=== PATIENT | male | born 1980 | race African-American/Black ===

== ENCOUNTER 2019-12-27 11:19 | Emergency (ER) | payer SELFPAY ==
[~2019-12-27] VITALS: Ht 182.9 cm; Wt 114.0 kg
[2019-12-27] MEDS ORDERED: HYDROCODONE/ACETAMINOPHEN 5/325MG TABLET PO ONE (12:15)
[2019-12-27] MEDS ORDERED: ONDANSETRON 4MG ODT PO ONE (12:15)
[2019-12-27 12:16] VITALS: BP 163/96
== END 2019-12-27 13:50 | disposition home or self-care (01) ==
LOC: ER 11:19
DX: R51 Headache (principal); M54.2 Cervicalgia; M25.512 Pain in left shoulder; R03.0 Elevated blood-pressure reading, without diagnosis of hypertension; V49.40XA Driver injured in collision with unspecified motor vehicles in traffic accident, initial encounter; Y93.89 Activity, other specified; Y92.410 Unspecified street and highway as the place of occurrence of the external cause
CPT/HCPCS: 70450; 72125; 73030; 99284; Q0162